=== PATIENT | male | born 1945 | race Caucasian/White ===

== ENCOUNTER 2017-07-24 14:32 | Inpatient (IN) | payer MEDICARE, OTHER, SELFPAY ==
[2017-07-24 14:47] LABS: #Lymphocytes 1.1 thou/uL (1.20-3.40); #Monocytes 0.6 thou/uL (0.11-0.59); #Neutrophils 6.9 thou/uL (1.40-6.50); %Eosinophils 0.5 % (0.0-10.0); %Lymphocytes 12.9 % (21.0-51.0); %Monocytes 7.2 % (0.0-10.0); Hematocrit 40.2 % (42.0-52.0); Mean Platelet Volume 6.2 fL (7.4-10.4); White Blood Cell (WBC) Count 8.7 thou/uL (4.8-10.8)
[2017-07-24 14:57] LABS: PTT 24.8 SEC (22.9-36.1); Prothrombin Time 13.2 SEC (12.0-14.7)
[2017-07-24] MEDS ORDERED: DOPamine 400 MG/D5W 250 ML 250 ML ONE ×2 (15:12→19:01)
[2017-07-24 15:14] LABS: ALT (SGPT) 14 U/L (8-55); AST (SGOT) 41 U/L (5-34); Alkaline Phosphatase 48 U/L (40-150); Anion Gap 18 mmol/L (10-20); BUN (Urea Nitrogen) 18 mg/dL (8.4-25.7); Bilirubin, Total 0.6 mg/dL (0.2-1.2); CK (CPK) 78 U/L (30-200); Calc. Creatinine Clearance 0 mL/min (70-130); Calcium 9.7 mg/dL (7.8-10.44); Carbon Dioxide 21 mmol/L (23-31); Chloride 104 mmol/L (98-107); Estimated GFR-MDRD 60; Lipase 13 U/L (8-78); Protein, Total 7.1 g/dL (5.8-8.1)
[2017-07-24] MEDS ORDERED: Clopidogrel Bisulfate 300 MG TAB ONE (15:14)
[2017-07-24 15:18] LABS: Troponin I Less than 0.010 ng/mL (< 0.028)
[2017-07-24] MEDS ORDERED: Adenosine 6 MG/2 ML VIAL ONE (15:21)
[2017-07-24] MEDS ORDERED: Aggrastat 12.5 MG/250 ML 250 ML ONE (15:29)
[2017-07-24] MEDS ORDERED: Heparin 10,000 UNITS/1 ML VIAL ONE (15:29)
[2017-07-24] MEDS ORDERED: Heparin 1000 UNIT/NS 500ML(OR) 500 ML ONE (15:30)
[2017-07-24] MEDS ORDERED: Milk Of Magnesia 30 ML UDCUP PO PRN (16:52)
[2017-07-24] MEDS ORDERED: Mag-Al 1200 mg/1200 mg/30 ML UDCUP PO PRN (16:52)
[2017-07-24] MEDS ORDERED: Morphine 4 MG/ML VIAL SLOW IVP PRN (16:52)
[2017-07-24] MEDS ORDERED: Nitroglycerin 0.4 MG TAB (25 Tab Bottle) SL PRN (16:52)
[2017-07-24] MEDS ORDERED: Aggrastat 12.5 MG/250 ML 250 ML IVPB SCH (17:00)
--- NOTE | 2017-07-24 17:50 | CCL ---
PROCEDURE: Selective coronary arteriography, drug eluding stent placement in the right coronary artery. INDICATION: Inferoposterior STEMI. Patient was brought to cardiac catheterization lab and the right groin was prepped and draped in usual fashion. 1% lidocaine was infiltrated. A 6 Bel[place]ian sheath was placed into the right femoral artery. The patient was given 5000 units of heparin and then later an additional 5000 and finally 2000 guided by ACTs. A 6-Belarusian left 4 diagnostic catheter was inserted for left coronary arteriography. This was removed and a 6-[place]ian right 4 guide was inserted for right coronary arteriography. The right coronary was totally occluded at the bifurcation. A floppy choice wire was then inserted. This was advanced into the right posterolateral artery. There was what was probably an ulcerated plaque proximal to the bifurcation; however, it is also felt that could be a cut off vessel. A floppy choice wire and then mailman was used to probe the area, but no other vessel takeoff could be found. Decision was then made to salvage the vessel that had been opened. Emerge 2.5 x 15 mm balloon was then inserted and the posterolateral was predilated. Synergy 3.0 x 16 mm stent was then placed into the posterolateral and deployed. The proximal to this and across the area of the ulcerated plaque Synergy 4.0 x 28 mm stent was placed. After this, there was MARÍA 1 flow. Multiple doses of adenosine 30 mcg were given during the case. Decision was made to place another stent proximal to the previous stent and Synergy 4.0 x 16 mm stent was then positioned. Decision was made to start Aggrastat and this was started. The patient also was hypotensive and dopamine 5 mcg per kilogram per minute was started. About this time, the right posterior descending could be seen. Multiple attempts with floppy choice wire would not cross the area. Mailman wire was then inserted and with going to an AP 20 degree caudal view the takeoff of the right posterior descending could be seen and the mailman could be advanced into the distal right posterior descending. This was then predilated with a 1.5 x 8 mm balloon. This was then removed and NC Emerge 3.0 x 15 mm balloon was then inserted at the takeoff of the right posterior descending and dilated. Finally , Synergy 3.0 x 12 mm stent was then positioned with a small portion of the proximal stent inside the bifurcation. Final result was excellent. MARÍA flow was 3 at the end of the case. The sheath was sutured in place and the patient was transferred to the CCU. RESULTS: 1. The left main had a 30% narrowing. 2. The LAD had a 60-70% ostial lesion, 60% proximal lesion and 80% and 50% distal lesion. 3. The circumflex was normal. 4. The right coronary artery had a 20% proximal stenosis and was totally occluded at the bifurcation. INTERVENTION RESULTS: The initial lesion was totally occluded with resulting in 0% stenosis in the distal right coronary artery, right posterior descending and right posterolateral. IMPRESSION: 1. Two-vessel coronary artery disease. 2. Successful stent placement to the distal right coronary artery, right posterior descending and right posterolateral artery. FILIBERTO
[2017-07-24 18:28] LABS: Troponin I 2.168 ng/mL (< 0.028)
[2017-07-24] MEDS: Sodium Chloride 0.9% 1,000 ML IV SCH (18:39)
[2017-07-24] MEDS: DOPamine 400 MG/D5W 250 ML 250 ML IVPB PRN (19:05)
--- NOTE | 2017-07-24 20:42 | HP ---
HISTORY: Micah Clement is a 71-year-old white male who denies any previous cardiac problems or previous chest pains. Today, he was roping calves and had onset of substernal chest pressure associated with diaphoresis. He stated that this started approximately 1 hour before he arrived in the emergency room. PAST MEDICAL HISTORY: He denies any history of hypertension, diabetes or hypercholesterolemia. He denies any chronic illnesses. MEDICATIONS: None. ALLERGIES: None. OPERATIONS: Left total knee replacement. SOCIAL HISTORY: Does not smoke or drink. FAMILY HISTORY: Negative for coronary artery disease. REVIEW OF SYSTEMS: A 12 point is unremarkable. PHYSICAL EXAMINATION: VITAL SIGNS: 110/70, pulse 90. HEENT: PERRL. NECK: Supple. CHEST: Clear. CARDIAC: S1 and S2 are normal, without any S3, S4 or murmurs. Carotid upstrokes normal, without bruits. Dorsalis pedis and posterior tibial pulses are intact. ABDOMEN: Normal bowel sounds, without tenderness or organomegaly. EXTREMITIES: Revealed no clubbing, cyanosis or edema. NEUROLOGIC: Grossly intact. SKIN: Warm and dry. LABORATORY DATA: EKG revealed [address] segment elevation in II, III and aVF. There is ST segment depression in aVL, V2 and V3. Sodium 139, potassium 3.9, chloride 104, carbon dioxide 21, BUN 18, creatinine 1.20, glucose 159. Initial troponin I and CK-MB are normal. Hemoglobin 13.6, hematocrit 40.2, white count 8700, platelets 283,000. IMPRESSION: Inferoposterior ST elevation myocardial infarction. PLAN: It was recommended that the patient undergo emergent catheterization. Risks of this were discussed with the patient including , myocardial infarction, dye reaction, vascular injury, CVA, transfusion, limb loss, renal loss, etc. Also, risk of intervention with PTCA and stent placement were discussed including , myocardial infarction, emergent CABG, restenosis, stent thrombosis, vessel perforation, etc. He has no history of gastrointestinal bleeding or stroke, and does not have any upcoming surgeries and a drug-eluting stent would be placed if required. FILIBERTO
[2017-07-25 00:30] LABS: Troponin I 30.272 ng/mL (< 0.028)
[2017-07-25] MEDS: Sodium Chloride 0.9% 1,000 ML IV SCH ×3 (01:01→19:39)
[2017-07-25 04:44] LABS: Hemoglobin A1c 5.1 % (4.0-6.0)
[2017-07-25 04:47] LABS: ALT (SGPT) 28 U/L (8-55); AST (SGOT) 194 U/L (5-34); Alkaline Phosphatase 45 U/L (40-150); Anion Gap 10 mmol/L (10-20); BUN (Urea Nitrogen) 17 mg/dL (8.4-25.7); Bilirubin, Total 0.8 mg/dL (0.2-1.2); Calc. Creatinine Clearance 85 mL/min (70-130); Calcium 9.4 mg/dL (7.8-10.44); Carbon Dioxide 25 mmol/L (23-31); Chloride 106 mmol/L (98-107); Cholesterol 203 mg/dl (< 200 Desired); Estimated GFR-MDRD 73; Globulin 2.6 g/dL (2.4-3.5); LDL Cholesterol, Calculated 138 mg/dL; Protein, Total 6.5 g/dL (5.8-8.1)
[2017-07-25 04:56] LABS: #Lymphocytes 0.8 thou/uL (1.20-3.40); #Monocytes 0.6 thou/uL (0.11-0.59); #Neutrophils 7.5 thou/uL (1.40-6.50); %Basophils 0.1 % (0.0-1.0); %Eosinophils 0.2 % (0.0-10.0); %Lymphocytes 8.5 % (21.0-51.0); %Monocytes 7.1 % (0.0-10.0); Hematocrit 36.3 % (42.0-52.0); Mean Platelet Volume 6.3 fL (7.4-10.4); Red Blood Cell (RBC) Count 3.72 mill/uL (4.70-6.10); White Blood Cell (WBC) Count 8.9 thou/uL (4.8-10.8)
[2017-07-25] MEDS: DOPamine 400 MG/D5W 250 ML 250 ML IVPB PRN ×2 (08:56→19:38)
[2017-07-25] MEDS: Clopidogrel Bisulfate 75 MG TAB PO SCH (08:57)
[2017-07-25 14:48] LABS: Troponin I 33.505 ng/mL (< 0.028)
--- NOTE | 2017-07-25 16:05 | CON ---
DATE OF CONSULTATION: 07/25/2017 HISTORY OF PRESENT ILLNESS: A pleasant 71-year-old gentleman who was at the [employer] in [place] when he d eveloped chest pain, radiation to the left arm, and nausea, classic symptoms of coronary artery disea se, he was taken to the slab tripper. Please review Dr. Gramajo's cath, multiple stents were placed in. He is a nonsmoker, no alcohol. PAST MEDICAL HISTORY: Unremarkable. No history of diabetes, hypertension. PREVIOUS SURGERIES: Include left total knee 3 years ago. SOCIAL AND FAMILY HISTORY: He is retired from the state, does some hunting operation. REVIEW OF SYSTEMS: Otherwise 10 point negative. PHYSICAL EXAMINATION: GENERAL: Awake, alert, responsive, in no distress. VITAL SIGNS: Blood pressure 88/54, he is on dopamine, pulse 70, respiratory rate 18. CHEST: Decreased breath sounds, no wheezing. CARDIAC: Normal S1, S2. No gallops. ABDOMEN: Soft. No masses. LABORATORY DATA: White count 8000, H&H 12 and 36, and platelet count 268. Electrolytes are normal. Troponin was elevated. X-RAY FINDINGS: His chest x-ray on admission was normal. IMPRESSION: 1. Status post myocardial infarction, emergency cardiac catheterization, multiple stents. 2. Hypertension. PLAN: Continue observation in the ICU. Continue dopamine and trial of fluid challenge. We will follow while in the ICU.
[2017-07-25] MEDS: AMOXicillin 250 MG CAP PO SCH (20:08)
[2017-07-25] MEDS: Atorvastatin Calcium 40 MG TAB PO SCH (20:08)
--- NOTE | 2017-07-26 08:28 | PRG ---
DATE OF SERVICE: SUBJECTIVE: Awake, alert, responsive. He is still on low dose dopamine. Denies any difficulty stephany thing. OBJECTIVE: VITAL SIGNS: His blood pressure is 90/60, pulse 81, O2 sat 97%. CHEST: No wheezing, crackles. CARDIAC: Normal S1, S2. No gallops. ABDOMEN: Soft, no masses. LABORATORY DATA: No lab was ordered. His troponin is 33.5. IMPRESSION: 1. Status post emergency cardiac catheterization. 2. Myocardial infarction. 3. Hypertension. PLAN: fluid challenge. Cortisol has been ordered. Continue observation in the ICU. We will follow while in the ICU.
[2017-07-26] MEDS: Clopidogrel Bisulfate 75 MG TAB PO SCH (08:48)
[2017-07-26] MEDS: AMOXicillin 250 MG CAP PO SCH ×2 (08:48→20:08)
[2017-07-26] MEDS: Sodium Chloride 0.9% 1,000 ML IV SCH (15:38)
[2017-07-26] MEDS: Atorvastatin Calcium 40 MG TAB PO SCH (20:08)
--- NOTE | 2017-07-27 05:46 | CON ---
DATE OF CONSULTATION: 07/26/2017 REASON FOR CONSULTATION: Evaluation for coronary artery bypass surgery. PERTINENT HISTORY: Patient is a 71-year-old male who presented 2 days ago with an acute inferior posterior ST-segment elevation UT. Peak troponin I appears to have been 33.5. Upon presentation, he was loaded with Plavix 300 mg and taken to the catheterization lab where the RCA was seen to be occluded at the bifurcation. He underwent a total of 4 drug-eluting stents to the distal RCA, PDA, and PL. Additionally noted were sequential high-grade LAD lesions including a 70% ostial LAD stenosis. The circumflex had no appreciable disease. Patient has been maintained on daily Plavix 75 mg. He has been hemodynamically stable. Transthoracic echo yesterday demonstrated mildly depressed left ventricular function with ejection fraction of 45%-50% and inferior hypokinesis. The patient is now referred for coronary artery bypass surgery. PAST MEDICAL HISTORY: Significant only for mild dyslipidemia, not on statin therapy prior to admission. PAST SURGICAL HISTORY: Left total knee replacement only. ALLERGIES: None. SOCIAL HISTORY: Nonsmoker. Nondrinker. FAMILY HISTORY: Father in his mid 80s of congestive heart failure. Mother at age 91 of natural causes; however, had undergone right carotid endarterectomy. MEDICATIONS PRIOR TO ADMISSION: None. CURRENT MEDICATIONS: Amoxicillin 500 mg b.i.d., aspirin 81 mg daily, Plavix 75 mg daily, Lipitor 40 mg at bedtime, and multiple p.r.n. medications. LABORATORY DATA AND X-RAY: Creatinine 1.01. INR 1.0. Hemoglobin 12.5. Platelet count 268,000. REVIEW OF SYSTEMS: No history of hypertension, diabetes, kidney or liver disease, stroke, or claudication. PHYSICAL EXAMINATION: VITAL SIGNS: Height 6 feet 2 inches, weight 195 pounds, blood pressure 120/66, heart rate 82, temperature 98.4. GENERAL: Well-developed, well-nourished male in no acute distress. He is fully oriented. HEENT: Grossly unremarkable. NECK: Without JVD or adenopathy. LUNGS: Clear with good inspiratory effort. HEART: Regular rate and rhythm without murmur or rub. ABDOMEN: Soft and nontender without palpable mass or hepatosplenomegaly. EXTREMITIES: Without edema. VASCULAR: Palpable radial, femoral, and popliteal pulses bilaterally. No carotid bruits were appreciated. Abdominal aorta is palpably nonenlarged. NEUROLOGIC: No focal deficits. IMPRESSION: Acute inferior posterior ST-segment elevation myocardial infarction , severe 2-vessel coronary artery disease as described above, and mild reduction in left ventricular function. RECOMMENDATIONS: Coronary artery bypass surgery to which the patient is in agreement following discussion with his referring cyber security and myself. The indications, benefits, alternatives, and risks were explained in detail to the patient and his . All questions were answered. The patient agrees to proceed without reservations. FILIBERTO
--- NOTE | 2017-07-27 08:46 | RAD ---
RADIOGRAPH CHEST 2 VIEWS: HISTORY: A 71-year-old male for preoperative clearance. FINDINGS: There is no air space density, pulmonary edema, pleural effusion, pneumothorax, or cardiomegaly. IMPRESSION: No acute cardiopulmonary findings. jn [] POS: [facility]
[2017-07-27] MEDS: AMOXicillin 250 MG CAP PO SCH ×2 (09:02→20:06)
--- NOTE | 2017-07-27 09:39 | ULT ---
ULTRASOUND CAROTID DOPPLER: Date: 07/27/17 HISTORY: Preop CABG. COMPARISON: None. TECHNIQUE: Real-time Saavedra scale, color Doppler, and spectral analysis of the extracranial carotid arteries and v ertebral arteries performed. . FINDINGS: Moderate plaque of both carotid bulbs and proximal internal carotid arteries. No focal hemodynamicall y significant elevated peak systolic velocity within the internal carotid arteries. Antegrade flow to both vertebral arteries. IMPRESSION: No hemodynamically significant stenosis. POS: [facility]
--- NOTE | 2017-07-27 11:30 | PRG ---
DATE OF SERVICE: 07/27/2017 This morning, awake, alert, responsive, in no distress, no pain, no shortness of breath. PHYSICAL EXAMINATION: VITAL SIGNS: Blood pressure 93/60, sats 97%, temperature 98. CHEST: Chest revealed decreased breath sounds, no wheezing. CARDIAC: Normal S1-S2. No gallops. ABDOMEN: Soft. No masses. IMPRESSION: 1. Status post myocardial infarction. 2. Status post cardiac catheterization. 3. Status post stents. 4. Previous posterior myocardial infarction. PLAN: The patient is scheduled for bypass surgery in the next 24-48 hours. Continue to observe. We will follow while in the ICU.
[2017-07-27] MEDS ORDERED: Communication Order-Pharmacy FS ONE (16:03)
[2017-07-27] MEDS: Sodium Chloride 0.9% 1,000 ML IV SCH (16:09)
[2017-07-27] MEDS: Atorvastatin Calcium 40 MG TAB PO SCH (20:06)
--- NOTE | 2017-07-28 09:01 | PRG ---
DATE OF SERVICE: 07/28/2017 He is awake, alert, responsive. No pain. He is scheduled for his bypass surgery today. PHYSICAL EXAMINATION: VITAL SIGNS: Sats 98% on room air, blood pressure 91/66, respiratory rate 18. CHEST: No wheezing. CARDIAC: Normal S1, S2. IMPRESSION: 1. Coronary artery disease. 2. Myocardial infarction, status post stent. PLAN: He is scheduled for surgery today, bypass. We will see him postop.
[2017-07-28] MEDS ORDERED: Heparin 10,000 UNITS/1 ML VIAL 30,000 UNITS in Sodium Chloride 0.9% 1,000 ML IVPB SCH (10:00)
[2017-07-28] MEDS ORDERED: Dexmedetomidine 200 MCG/2 ML VIAL ONE (10:12)
[2017-07-28] MEDS ORDERED: Midazolam HCl 5 mg/5 ml Vial ONE ×3 (10:12→15:48)
[2017-07-28] MEDS ORDERED: Promethazine HCl 25 MG/ML VIAL ONE (10:12)
[2017-07-28] MEDS ORDERED: Fentanyl 250 MCG/5 ML VIAL ONE ×3 (10:12→12:17)
[2017-07-28] MEDS ORDERED: Norepinephrine 8 MG/0.9% NS 250 ML ONE (10:13)
[2017-07-28] MEDS ORDERED: Phenylephrine 10 MG/NS 250 ML 250 ML ONE (10:13)
[2017-07-28] MEDS ORDERED: Albumin 5% 500 ML ONE (11:37)
[2017-07-28] MEDS ORDERED: CEFAZOLIN/Water 2 GM/20 ML SYRINGE ONE (11:48)
[2017-07-28] MEDS ORDERED: Vancomycin HCl 1.5 GM in Sodium Chloride 0.9% 250 ML 300 ML IVPB SCH (12:30)
[2017-07-28] MEDS ORDERED: CEFAZOLIN/Water 2 GM/20 ML SYRINGE SLOW IVP SCH (13:00)
[2017-07-28] MEDS ORDERED: CEFAZOLIN 2 GM in Sodium Chloride 0.9% 100 ML IVPB SCH (13:00)
[2017-07-28] MEDS ORDERED: Esmolol 100 MG/10 ML VIAL ONE (15:11)
[2017-07-28] MEDS ORDERED: Thrombin 5000 UNITS/5 ML VIAL ONE (15:11)
[2017-07-28] MEDS ORDERED: Propofol 200 MG/20 ML VIAL ONE (15:11)
[2017-07-28] MEDS ORDERED: PHENYLEPHRINE-NS 100 MCG/ML 10 ML SYRINGE ONE (15:11)
[2017-07-28] MEDS ORDERED: Aminocaproic Acid 5 GM/20 ML VIAL ONE (15:11)
[2017-07-28] MEDS ORDERED: Papaverine 60 MG/2 ML VIAL ONE (15:11)
[2017-07-28] MEDS ORDERED: Protamine Sulfate 250 MG/25 ML VIAL ONE (15:11)
[2017-07-28] MEDS ORDERED: Heparin 30,000 units/30 ml VIAL ONE (15:11)
[2017-07-28] MEDS ORDERED: Calcium Chloride 1 GM/10 ML Abboject SYRINGE ONE (15:11)
[2017-07-28] MEDS ORDERED: Lidocaine 1% PF 5 ML VIAL ONE (15:11)
[2017-07-28] MEDS ORDERED: ePHEDrine/0.9% NaCl/PF SYRINGE 50 mg/10 ml ONE (15:11)
[2017-07-28] MEDS ORDERED: Heparin 5,000 UNITS/ML VIAL ONE (15:11)
[2017-07-28] MEDS ORDERED: DOPamine 400 MG/10 ML VIAL ONE (15:11)
[2017-07-28] MEDS ORDERED: Promethazine HCl 25 MG/ML VIAL IM PRN (15:43)
[2017-07-28] MEDS ORDERED: HYDROcodone/Acetaminophen 5/325 mg Tablet PO PRN ×2 (15:43)
[2017-07-28] MEDS ORDERED: Bisacodyl 5 MG TAB PO PRN (15:43)
[2017-07-28] MEDS ORDERED: Phenylephrine 10 MG/NS 250 ML 250 ML IVPB PRN (15:43)
[2017-07-28] MEDS ORDERED: hydrALAZINE 20 MG/ML VIAL SLOW IVP PRN (15:43)
[2017-07-28] MEDS ORDERED: Fentanyl 100 MCG/2 ML VIAL SLOW IVP PRN ×2 (15:43)
[2017-07-28] MEDS ORDERED: Guaifenesin DM 100-10/5 ML UDCUP PO PRN (15:43)
[2017-07-28] MEDS ORDERED: Bisacodyl 10 MG SUPP PR PRN (15:43)
[2017-07-28] MEDS ORDERED: Norepinephrine 8 MG/0.9% NS 250 ML IVPB PRN (15:43)
[2017-07-28] MEDS ORDERED: DOPamine 400 MG/D5W 250 ML 250 ML IVPB PRN (15:43)
[2017-07-28] MEDS ORDERED: Acetaminophen 325 MG TAB PO PRN (15:43)
[2017-07-28] MEDS ORDERED: Post-Op Insulin Drip Protocol IVPB ONE (15:43)
[2017-07-28] MEDS ORDERED: Mag-Al 1200 mg/1200 mg/30 ML UDCUP PO PRN (15:43)
[2017-07-28] MEDS ORDERED: Nitroglycerin 50 MG/250 ML BOT 250 ML IVPB PRN (15:43)
[2017-07-28] MEDS ORDERED: Ondansetron HCl/PF 4 MG/2 ML Vial IVP PRN (15:43)
[2017-07-28] MEDS ORDERED: Dextrose 50% Abboject 50 ML SYRINGE SLOW IVP PRN (15:50)
[2017-07-28] MEDS ORDERED: Dextrose 5% in Water 1,000 ML IV PRN (15:50)
[2017-07-28] MEDS ORDERED: Morphine 2 MG/ML SYRINGE SLOW IVP PRN (15:57)
[2017-07-28 16:05] LABS: #Eosinphils 0.1 thou/uL (0.0-0.7); #Lymphocytes 1.3 thou/uL (1.20-3.40); #Monocytes 0.4 thou/uL (0.11-0.59); #Neutrophils 7.4 thou/uL (1.40-6.50); %Basophils 0.4 % (0.0-1.0); %Eosinophils 1.5 % (0.0-10.0); %Lymphocytes 14.3 % (21.0-51.0); %Monocytes 4.3 % (0.0-10.0); Hematocrit 29.6 % (42.0-52.0); Mean Platelet Volume 6.3 fL (7.4-10.4); Red Blood Cell (RBC) Count 2.99 mill/uL (4.70-6.10); White Blood Cell (WBC) Count 9.3 thou/uL (4.8-10.8)
[2017-07-28] MEDS: Sodium Chloride 0.9% 1,000 ML IV SCH (16:06)
[2017-07-28] MEDS ORDERED: Insulin Regular 300 UNITS/3 ML VIAL ONE (16:09)
[2017-07-28] MEDS: Insulin Regular 300 UNITS/3 ML VIAL SC PRN ×2 (16:12→19:47)
[2017-07-28 16:18] LABS: Mechanical Tidal Volume 550 ml; Mode SIMV.PSV; Modified Allen's Test NOT DONE; Oxyhemoglobin 97.6 % (94.0-97.0); Pressure Support 10 cmH2O; Sodium 140 mmol/L (135-148); Vent YES
[2017-07-28 16:20] LABS: PTT 34.9 SEC (22.9-36.1); Prothrombin Time 15.2 SEC (12.0-14.7)
[2017-07-28 16:26] LABS: Anion Gap 9 mmol/L (10-20); BUN (Urea Nitrogen) 12 mg/dL (8.4-25.7); Calc. Creatinine Clearance 93 mL/min (70-130); Calcium 8.5 mg/dL (7.8-10.44); Carbon Dioxide 24 mmol/L (23-31); Chloride 109 mmol/L (98-107); Estimated GFR-MDRD 85
[2017-07-28 17:30] LABS: Modified Allen's Test NOT DONE; Oxyhemoglobin 97.6 % (94.0-97.0); Pressure Support 10 cmH2O; Sodium 139 mmol/L (135-148); Vent YES
[2017-07-28 17:31] LABS: Mode PSV
--- NOTE | 2017-07-28 17:35 | OP ---
PREOPERATIVE DIAGNOSES: Acute inferior posterior ST segment elevation myocardial infarction status post percutaneous intervention, severe left anterior descending disease not amenable to catheter based intervention, and mild reduction in left ventricular function. SURGEON: Toi Mills M.D. HEEL SEWER: Serg Bryant M.D. POSTOPERATIVE DIAGNOSES: Acute inferior posterior ST segment elevation myocardial infarction status post percutaneous intervention, severe left anterior descending disease not amenable to catheter based intervention, and mild reduction in left ventricular function. SPONGE AND NEEDLE COUNTS: Correct. ANESTHESIA: General. OPERATION PERFORMED: Off-pump coronary artery bypass grafting x2 with left internal mammary artery in sequence to diagonal and LAD. FINDINGS AT OPERATION: Moderate cardiomegaly. At the sites of distal anastomosis the diagonal was 1.75-2.0 mm and the LAD 1.25-1.5 mm. Left internal mammary artery was an excellent conduit. DESCRIPTION OF OPERATION: The patient was taken to the operating room. Following the induction of general endotracheal anesthesia, the patient was prepped and draped in the usual sterile fashion. Sternotomy was performed. Left internal mammary artery was dissected in extrapleural fashion. The operation was performed off pump using the Guidant system and mister-blower. Heparin dose was given achieving an ACT greater than 350. The left internal mammary artery was now anastomosed in sequenced fashion to the diagonal and LAD. It was first anastomosed in [id number]-[id number] fashion to the diagonal using a continuous 7-0 Prolene suture and then in end-to-side fashion to the LAD using a continuous 7-0 Prolene suture. Mammary artery pedicle was tacked to the epicardium using 6-0 Prolene sutures. Heparin was reversed with protamine. Amicar had been used in standard fashion through the case, however, an obvious coagulopathy responded to a single donor pack of platelets. The patient had been loaded with Plavix at the time of his presentation and continued on daily Plavix thereafter. No other intraoperative blood products were required. Pericardium was not closed. Lloyd drains x2 were positioned within the pericardial well. Sternum was reapproximated with interrupted #7 stainless steel wires. Linea alba and fascia were closed with running #1 Vicryl sutures followed by closure of the subcutaneous tissues with a running 2-0 Vicryl suture. Skin was closed with a 3-0 Vicryl subcuticular stitch. Prior to closure, vancomycin paste had been applied to the sternal halves. Platelet- enriched and platelet-poor plasma had also been applied to the sternal wound. The patient was taken to the ICU. FILIBERTO
[2017-07-28] MEDS: Ketorolac Tromethamine 30 MG/ML VIAL IVP SCH ×2 (17:48→23:28)
--- NOTE | 2017-07-28 18:58 | RAD ---
CHEST ONE VIEW: 07/28/17 HISTORY: Open heart surgery. COMPARISON: Chest two view prior day. FINDINGS: Patient is intubated and the endotracheal tube craniad to the demetra approximately 3.5 cm. Central ve nous catheter tip is at the cavoatrial junction. Expected atelectatic changes in the right lung. No p neumothorax. There are mediastinal drains. There is a possible enteric tube although the tip is not w ell seen and may be in the upper thoracic esophagus. Recommend retracting and then advancing. IMPRESSION: Expected postoperative findings without complication. POS: [facility]
[2017-07-28] MEDS: CEFAZOLIN/Water 2 GM/20 ML SYRINGE SLOW IVP SCH (19:35)
[2017-07-28] MEDS: Famotidine/PF 20 mg/2ml Vial SLOW IVP SCH (20:56)
[2017-07-28 21:33] LABS: Hematocrit 27.2 % (42.0-52.0)
[2017-07-28] MEDS: Potassium Chloride 20 MEQ/100 ML PREMIX BAG IVPB PRN (22:03)
[2017-07-28] MEDS: Vancomycin HCl 1.5 GM in Sodium Chloride 0.9% 250 ML 300 ML IVPB SCH (23:29)
[2017-07-29] MEDS: CEFAZOLIN/Water 2 GM/20 ML SYRINGE SLOW IVP SCH ×2 (03:42→11:26)
[2017-07-29] MEDS: Insulin Regular 300 UNITS/3 ML VIAL SC PRN (03:55)
[2017-07-29 04:25] LABS: #Lymphocytes 0.6 thou/uL (1.20-3.40); #Monocytes 0.3 thou/uL (0.11-0.59); #Neutrophils 5.1 thou/uL (1.40-6.50); %Eosinophils 0.1 % (0.0-10.0); %Lymphocytes 9.3 % (21.0-51.0); %Monocytes 5.5 % (0.0-10.0); Hematocrit 23.7 % (42.0-52.0); Mean Platelet Volume 7.1 fL (7.4-10.4); Red Blood Cell (RBC) Count 2.41 mill/uL (4.70-6.10); White Blood Cell (WBC) Count 5.9 thou/uL (4.8-10.8)
[2017-07-29 04:41] LABS: Anion Gap 10 mmol/L (10-20); BUN (Urea Nitrogen) 15 mg/dL (8.4-25.7); Calc. Creatinine Clearance 82 mL/min (70-130); Calcium 8.4 mg/dL (7.8-10.44); Carbon Dioxide 23 mmol/L (23-31); Chloride 108 mmol/L (98-107); Estimated GFR-MDRD 73
[2017-07-29] MEDS: Ketorolac Tromethamine 30 MG/ML VIAL IVP SCH ×3 (06:00→17:34)
[2017-07-29] MEDS: Potassium Chloride 20 MEQ/100 ML PREMIX BAG IVPB PRN (06:00)
--- NOTE | 2017-07-29 08:51 | PRG ---
DATE OF SERVICE: 07/29/2017 This morning he is a little bit sore, he is having some pleuritic pain in the back of his chest. Patricia st x-ray was normal. PHYSICAL EXAMINATION: VITAL SIGNS: He is slightly hypotensive with a blood pressure 83/58, pulse 91, O2 sats 100%, respira tions 14. CHEST: No wheezing. CARDIAC: Normal S1, S2. LABORATORY DATA: White count 5000, H&H 8 and 23, platelet count is 220. Electrolytes are normal. The patient has been given some packed cells. Pain relief, supportive care and PT. We will follow. IMPRESSION: 1. Status post coronary artery bypass graft. 2. Hypertension. 3. Anemia. Continue supportive care, PT. I will follow.
--- NOTE | 2017-07-29 09:27 | RAD ---
AP VIEW CHEST: HISTORY: Status post open heart surgery. DATE: 07/29/17. COMPARISON: Comparison is made to previous exam from 07/28/17. FINDINGS: AP view chest demonstrates sternotomy wires seen. A right subclavian line is seen. Pericardial drai ns in place. The patient has been extubated. IMPRESSION: Interval extubation of the patient; otherwise, unremarkable AP view chest. Liens and tubes in good p osition. POS: [facility]
[2017-07-29] MEDS: Famotidine/PF 20 mg/2ml Vial SLOW IVP SCH ×2 (10:34→21:34)
[2017-07-29] MEDS: Aspirin 325 MG TAB PO SCH (10:34)
[2017-07-29] MEDS: Vancomycin HCl 1.5 GM in Sodium Chloride 0.9% 250 ML 300 ML IVPB SCH (11:32)
--- NOTE | 2017-07-29 14:28 | EKG ---
Test Reason : Blood Pressure : / mmHG Vent. Rate : 084 BPM Atrial Rate : 084 BPM P-R Int : 170 ms QRS Dur : 078 ms QT Int : 412 ms P-R-T Axes : 092 045 063 degrees QTc Int : 486 ms Normal sinus rhythm Inferior infarct , age undetermined cannot be excluded Abnormal ECG Confirmed by ELIZABETH BROWN ([id number]) on 07/29/2017 2:27:45 PM Referred By: CORNELIO Confirmed By:ELIZABETH BROWN
[2017-07-29] MEDS: Amiodarone In Dextrose,Iso-Osm 200 ML IVPB SCH (19:09)
[2017-07-30] MEDS: Ketorolac Tromethamine 30 MG/ML VIAL IVP SCH ×5 (00:16→23:56)
[2017-07-30] MEDS: Amiodarone In Dextrose,Iso-Osm 200 ML IVPB SCH ×3 (00:53→22:40)
[2017-07-30 03:53] LABS: #Eosinphils 0.1 thou/uL (0.0-0.7); #Monocytes 0.6 thou/uL (0.11-0.59); #Neutrophils 4.5 thou/uL (1.40-6.50); %Basophils 0.4 % (0.0-1.0); %Eosinophils 1.9 % (0.0-10.0); %Lymphocytes 15.5 % (21.0-51.0); %Monocytes 9.1 % (0.0-10.0); Hematocrit 26.3 % (42.0-52.0); Mean Platelet Volume 7.1 fL (7.4-10.4); White Blood Cell (WBC) Count 6.2 thou/uL (4.8-10.8)
[2017-07-30 04:48] LABS: Anion Gap 10 mmol/L (10-20); BUN (Urea Nitrogen) 16 mg/dL (8.4-25.7); Calc. Creatinine Clearance 89 mL/min (70-130); Calcium 8.9 mg/dL (7.8-10.44); Carbon Dioxide 25 mmol/L (23-31); Chloride 104 mmol/L (98-107); Estimated GFR-MDRD 79
[2017-07-30 05:17] VITALS: BMI 26.1
--- NOTE | 2017-07-30 08:43 | RAD ---
PORTABLE CHEST: HISTORY: Respiratory distress. COMPARISON: 07/29/2017 FINDINGS: Heart size is borderline to slightly enlarged with postop sternotomy change. Chest tubes remain in p lace. A right subclavian line is unchanged in position. Lungs are clear. IMPRESSION: Stable chest. POS: [facility]
[2017-07-30] MEDS: Famotidine/PF 20 mg/2ml Vial SLOW IVP SCH (09:19)
[2017-07-30] MEDS: Aspirin 325 MG TAB PO SCH (09:19)
[2017-07-30] MEDS ORDERED: Amiodarone HCl 150 MG in Dextrose 5% in Water 100 ML IVPB SCH ×2 (10:00)
[2017-07-30] MEDS: Clopidogrel Bisulfate 75 MG TAB PO SCH (14:54)
[2017-07-30] MEDS ORDERED: Nitroglycerin 50 MG/250 ML BOT 0 ML ONE (15:47)
[2017-07-30] MEDS ORDERED: Mag-Al 1200 mg/1200 mg/30 ML UDCUP PO PRN (20:26)
[2017-07-30] MEDS ORDERED: Nitroglycerin 0.4 MG TAB 1 EACH SL PRN (20:26)
[2017-07-30] MEDS ORDERED: Promethazine HCl 25 MG/ML VIAL IM PRN (20:26)
[2017-07-30] MEDS ORDERED: Milk Of Magnesia 30 ML UDCUP PO PRN (20:26)
[2017-07-30] MEDS ORDERED: Acetaminophen 325 MG TAB PO PRN (20:26)
[2017-07-30] MEDS ORDERED: Guaifenesin DM 100-10/5 ML UDCUP PO PRN (20:26)
[2017-07-30] MEDS ORDERED: Fentanyl 100 MCG/2 ML VIAL SLOW IVP PRN ×2 (20:26)
[2017-07-30] MEDS ORDERED: diphenhydrAMINE 25 MG CAP PO PRN (20:26)
[2017-07-30] MEDS ORDERED: HYDROcodone/Acetaminophen 5/325 mg Tablet PO PRN (20:26)
[2017-07-30] MEDS ORDERED: Bisacodyl 10 MG SUPP PR PRN (20:26)
[2017-07-30] MEDS ORDERED: Artificial Tears 18 DROP/0.9 ML EA EYE PRN (20:26)
[2017-07-30] MEDS ORDERED: Ondansetron HCl/PF 4 MG/2 ML Vial IVP PRN (20:26)
[2017-07-30] MEDS ORDERED: Bisacodyl 5 MG TAB PO PRN (20:26)
[2017-07-30] MEDS ORDERED: Mineral Oil ENEMA PR PRN (20:26)
[2017-07-30] MEDS ORDERED: Zolpidem Tartrate 5 MG TAB PO PRN (20:26)
[2017-07-31] MEDS: Famotidine 20 MG TAB PO SCH ×3 (00:16→20:45)
[2017-07-31] MEDS: Sodium Chloride 0.9% 1,000 ML IV SCH (00:18)
--- NOTE | 2017-07-31 01:46 | PRG ---
DATE OF SERVICE: 07/30/2017 SUBJECTIVE: Mr. Clement has no complaints related to his surgery, but he is frustrated that he went into atrial fibrillation. He was examined again this evening and he is out of atrial fibrillation. OBJECTIVE: VITAL SIGNS: His heart rates in the 80s, blood pressure 117/69, respiratory rate in the teens. LUNGS: Clear. HEART: Regular rhythm now. ABDOMEN: Soft and nontender. His feet are warm. LABORATORY DATA: Chest radiographs unchanged. This was reviewed by me. White count 6.2, hemoglobin 8.8, platelets 204,000. Sodium 135, potassium 3.9, chloride 104, bicarb 25, BUN 16, creatinine 0.94, glucose 124. IMPRESSION: 1. Status post coronary artery bypass grafting. 2. Postoperative atrial fibrillation, now back in sinus rhythm. 3. History of lipid disorder. 4. History of knee replacement. 5. History of vascular disease with advanced age. PLAN: Continue supportive care and appears to be doing well, hopefully he will stay in sinus rhythm.
[2017-07-31] MEDS: Ketorolac Tromethamine 30 MG/ML VIAL IVP SCH ×3 (06:13→18:00)
[2017-07-31] MEDS ORDERED: Aspirin 325 mg Enteric Coated Tablet PO SCH (09:00)
[2017-07-31] MEDS: Clopidogrel Bisulfate 75 MG TAB PO SCH (09:16)
[2017-07-31] MEDS: Amiodarone In Dextrose,Iso-Osm 200 ML IVPB SCH (10:55)
[2017-07-31] MEDS ORDERED: Aspirin 81 mg Enteric Coated Tablet PO SCH (11:30)
[2017-08-01] MEDS: HYDROcodone/Acetaminophen 5/325 mg Tablet PO PRN ×2 (06:35→21:11)
[2017-08-01] MEDS: Aspirin 81 mg Enteric Coated Tablet PO SCH (08:36)
[2017-08-01] MEDS: Clopidogrel Bisulfate 75 MG TAB PO SCH (08:36)
[2017-08-01] MEDS: Famotidine 20 MG TAB PO SCH ×2 (08:36→21:11)
[2017-08-01] MEDS: AMOXicillin 250 MG CAP PO SCH ×2 (10:33→21:12)
[2017-08-01] MEDS ORDERED: AMOXicillin 250 MG CAP PO SCH (23:00)
[2017-08-02] MEDS: Aspirin 81 mg Enteric Coated Tablet PO SCH (08:27)
[2017-08-02] MEDS: AMOXicillin 250 MG CAP PO SCH ×2 (08:27→20:58)
[2017-08-02] MEDS: Clopidogrel Bisulfate 75 MG TAB PO SCH (08:27)
[2017-08-02] MEDS: Famotidine 20 MG TAB PO SCH ×2 (08:27→20:52)
[2017-08-02] MEDS: Enoxaparin Sodium 40 MG/0.4 ML SYRINGE SC SCH (12:44)
[2017-08-03 05:42] VITALS: TEMP 97.5
[2017-08-03] MEDS: Clopidogrel Bisulfate 75 MG TAB PO SCH (09:04)
[2017-08-03] MEDS: Aspirin 81 mg Enteric Coated Tablet PO SCH (09:04)
[2017-08-03] MEDS: AMOXicillin 250 MG CAP PO SCH (09:04)
[2017-08-03] MEDS: Famotidine 20 MG TAB PO SCH (09:04)
[2017-08-03] MEDS: Enoxaparin Sodium 40 MG/0.4 ML SYRINGE SC SCH (09:05)
[2017-08-03 12:24] VITALS: BP 119/75
--- NOTE | 2017-08-03 13:15 | DIS ---
REASON FOR ADMISSION: Acute inferior-posterior ST segment elevation NJ. CLINICAL RESUME: The patient is a 71-year-old male who presented with an acute inferior-posterior ST segment elevation NJ. Peak troponin I was 33.5. The patient was loaded with Plavix and taken to the [facility] where the RCA was seen to be occluded at the bifurcation. He underwent a total of 4 drug-eluting stents to the distal RCA, PDA and PL. Additionally noted were sequential high grade lesions involving the LAD, including a 70% ostial stenosis. The circumflex had no appreciable disease. Left ventricular function on transthoracic echo was 45-50%. The patient was referred for early coronary artery bypass surgery to the LAD. On 07/28/2017 the patient underwent off pump coronary artery bypass grafting x2 with left internal mammary artery in sequence to the diagonal and LAD. See operative report for details. Transfusions consisted of a single donor pack of platelets at the time of surgery to counter the effects of Plavix and 1 unit of packed red blood cells in the postoperative period for hemoglobin of 8.2. His postoperative course was noteworthy for atrial fibrillation, resolved with the amiodarone therapy. As of today, he was considered stable for discharge. Follow up will be arranged in my office in 2 weeks or sooner p.r.n. He is to establish with a local installation coordinator in [place] as he lives in [place]. DIET: Cardiac prudent. ACTIVITY: Light with restrictions on driving and heavy lifting at this time. WOUND CARE: As instructed. DISCHARGE MEDICATIONS: Ecotrin 81 mg daily, Plavix 75 mg daily, Lipitor 40 mg daily, Toprol-XL 50 mg q.a.m., [place] 5/325 mg 1-2 q.4-6 hours p.r.n., and amiodarone 400 mg b.i.d. for 2 weeks, then 200 mg b.i.d. for 2 weeks. MTDD
[2017-08-03 15:16] LABS: Oxyhemoglobin 97.5 % (94.0-97.0); Sodium 140 mmol/L (135-148)
[2017-08-03 15:16] LABS: Oxyhemoglobin 97.6 % (94.0-97.0); Sodium 140 mmol/L (135-148)
[2017-08-04 08:05] LABS: Mode OR ABG; Vent YES
[2017-08-04 08:06] LABS: Mode OR ABG; Vent YES
--- NOTE | 2017-08-05 13:11 | PQF ---
JODIE PAZ WANDER G [id number] CLINICAL DOCUMENTATION CLARIFICATION FORM: POST DISCHARGE Addendum to original discharge summary date: ____ Late entry note date: __ DATE: 08/05/2017 ATTN: DR. ARGUELLES Please exercise your independent, professional judgment in responding to the clarification form. Clinical indicators are provided on the bottom of this form for your review Please check appropriate box(s): [ ] Acute blood loss anemia [ ] Post-op anemia related to acute blood loss [ ] Anemia: [ ] Aplastic [ ] Nutritional [ ] Drug induced (specify) ___ [ ] Hemolytic [ ] Hereditary [ ] Acquired [ ] Autoimmune [ ] Non-autoimmune [ ] Enzyme disorder [ ] Chronic Anemia: [ ] Blood loss [ ] Hemolytic [ ] Simple [ ] Due to Vitamin B12 Deficiency [ ] Other [ ] Anemia of Chronic Disease (please specify) [ ] Anemia due to Neoplasm: [ ] Primary [ ] Secondary [ ] Anemia due to (please choose): [ ] Due to Chemotherapy [ ] Due to Radiotherapy [ ] Due to Immunotherapy [ ] Other diagnosis [ ] Unable to determine In addition, please specify: Present on Admission (POA): [ ] Yes [ ] No [ ] Unable to determine For continuity of documentation, please document condition throughout progress notes and discharge summary. Thank You. CLINICAL INDICATORS - SIGNS / SYMPTOMS / LABS 07/29 PN - ANEMIA 07/29 - PRBC TRANSFUSION RISK FACTORS Surgery TREATMENTS: Transfusion of blood products (This form is maintained as a part of the permanent medical record) 2014 [employer]. All Rights Reserved Katy Brito C[employer], PERMANENT [email or web address] [phone] FILIBERTO
--- NOTE | 2017-08-07 13:33 | EKG ---
Test Reason : Blood Pressure : / mmHG Vent. Rate : 074 BPM Atrial Rate : 074 BPM P-R Int : 178 ms QRS Dur : 086 ms QT Int : 384 ms P-R-T Axes : 078 071 052 degrees QTc Int : 426 ms Normal sinus rhythm Inferior infarct , possibly acute ACUTE VA / STEMI Abnormal ECG No previous ECGs available Confirmed by HI RODRIGUEZ, GURJIT ([id number]) on 08/07/2017 1:33:21 PM Referred By: YAN Confirmed By:GURJIT DO MD
--- NOTE | 2017-08-07 13:33 | EKG ---
Test Reason : ROUTINE Blood Pressure : / mmHG Vent. Rate : 063 BPM Atrial Rate : 063 BPM P-R Int : 154 ms QRS Dur : 082 ms QT Int : 420 ms P-R-T Axes : 088 024 059 degrees QTc Int : 429 ms Normal sinus rhythm with sinus arrhythmia Inferior infarct (cited on or before 24-JUL-2017) Abnormal ECG When compared with ECG of 24-JUL-2017 17:10, (Unconfirmed) Serial changes of evolving Inferior infarct Present Confirmed by GURJIT DO MD ([id number]) on 08/07/2017 1:33:47 PM Referred By: YAN Confirmed By:GURJIT DO MD
== END 2017-08-03 12:35 | disposition home or self-care (01) | DRG 232 ==
LOC: ERS 14:32 → CCU 14:45 → ERS 14:45 → CCU 16:42 → IMCU/EMU 07-26 23:31 → CCU 07-28 11:51 → 2NO 07-30 23:26
PROVIDERS: ADMIT Internal Medicine Cardiovascular Disease; ATTEND Internal Medicine Cardiovascular Disease
PROC: 0270366 Dilation of Coronary Artery, One Artery, Bifurcation, with Three Drug-eluting Intraluminal Devices, Percutaneous Approach (ICD-10-PCS; principal; 2017-07-24)
PROC: B2111ZZ Fluoroscopy of Multiple Coronary Arteries using Low Osmolar Contrast (ICD-10-PCS; 2017-07-24)
PROC: 02110Z9 Bypass Coronary Artery, Two Arteries from Left Internal Mammary, Open Approach (ICD-10-PCS; 2017-07-28)
PROC: 30233N1 Transfusion of Nonautologous Red Blood Cells into Peripheral Vein, Percutaneous Approach (ICD-10-PCS; 2017-07-29)
DX: I21.11 ST elevation (STEMI) myocardial infarction involving right coronary artery (principal); I48.91 Unspecified atrial fibrillation; I95.9 Hypotension, unspecified; D64.9 Anemia, unspecified; I25.10 Atherosclerotic heart disease of native coronary artery without angina pectoris; I10 Essential (primary) hypertension; Z82.49 Family history of ischemic heart disease and other diseases of the circulatory system
CPT/HCPCS: 36415; 36416; 36430; 71010; 71020; 80048; 80053; 80061; 82533; 82550; 82553; 82805; 83036; 83690; 84484; 85025; 85347; 85610; 85730; 86850; 86900; 86901; 92928; 93005; 93010; 93306; 93454; 93798; 93880; 94002; 94150; 94760; C1725; C1769; C1874; C1887; C9600; J0153; J0282; J1265; J1642; J1644; J1650; J1815; J1885; J2001; J2250; J2270; J2405; J2440; J2550; J2704; J2720; J3010; J3246; J3370; J3480; J7050; J7070; P9016; P9035; P9045; S0017; S0028